=== PATIENT | male | born 1960 | race Two or more races ===

== ENCOUNTER 2017-09-03 17:24 | Emergency (ER) | payer OTHER ==
[~2017-09-03] VITALS: Ht 175.3 cm; Wt 90.7 kg
[2017-09-03 17:25] VITALS: BP 142/63
[2017-09-03] MEDS ORDERED: HYDROCODONE/APAP 5/325MG 1 EACH TABLET ONE (17:50)
[2017-09-03] MEDS ORDERED: ONDANSETRON 4 MG TAB.RAPDIS ONE (17:50)
[2017-09-03] MEDS ORDERED: LIDOCAINE /MPF 1% VIAL 5 ML VIAL ONE (17:50)
[2017-09-03] MEDS: LIDOCAINE 1% INJ 50 ML MDV IJ ONE (17:59)
[2017-09-03] MEDS: ONDANSETRON 4 MG TAB.RAPDIS SL ONE (18:00)
[2017-09-03] MEDS: HYDROCODONE/APAP 5/325MG 1 EACH TABLET PO ONE (18:00)
== END 2017-09-03 18:52 | disposition home or self-care (01) ==
LOC: ER 17:25
DX: S63.293A Dislocation of distal interphalangeal joint of left middle finger, initial encounter (principal); Z90.89 Acquired absence of other organs; X58.XXXA Exposure to other specified factors, initial encounter; Y93.61 Activity, american tackle football; Y92.89 Other specified places as the place of occurrence of the external cause; Y99.8 Other external cause status
CPT/HCPCS: 73140-TC; A4606; A6402; J3490; Q0162; Z7610